=== PATIENT | female | born 1980 | race Caucasian/White ===

== ENCOUNTER 2017-11-20 17:52 | Emergency (ER) | payer SELFPAY ==
[2017-11-20] MEDS ORDERED: Clindamycin 150 MG CAP ONE (18:08)
== END 2017-11-20 18:12 | disposition home or self-care (01) ==
LOC: BURERS 17:52
DX: L08.9 Local infection of the skin and subcutaneous tissue, unspecified (principal); F31.9 Bipolar disorder, unspecified; F17.210 Nicotine dependence, cigarettes, uncomplicated
CPT/HCPCS: 99283

== ENCOUNTER 2018-06-18 10:57 | Emergency (ER) | payer SELFPAY | END 2018-06-18 14:18 | disposition home or self-care (01) | LOC: BURERS 10:57 | DX: L25.9 Unspecified contact dermatitis, unspecified cause (principal); F31.9 Bipolar disorder, unspecified; F41.9 Anxiety disorder, unspecified; F17.210 Nicotine dependence, cigarettes, uncomplicated | CPT/HCPCS: 99282 ==

== ENCOUNTER 2020-07-31 22:55 | Emergency (ER) | payer SELFPAY ==
[2020-07-31] MEDS ORDERED: Acetaminophen 500 MG TAB ONE (23:39)
[2020-07-31] MEDS ORDERED: Sulfameth/Trimethoprim DS 800-160mg TAB ONE (23:39)
[2020-07-31] MEDS ORDERED: Cephalexin 250 MG CAP ONE (23:39)
== END 2020-07-31 23:55 | disposition home or self-care (01) ==
LOC: BURERS 22:55
DX: L03.116 Cellulitis of left lower limb (principal); I10 Essential (primary) hypertension; F31.9 Bipolar disorder, unspecified; F41.9 Anxiety disorder, unspecified; F17.210 Nicotine dependence, cigarettes, uncomplicated; Z71.6 Tobacco abuse counseling
CPT/HCPCS: 99406

== ENCOUNTER 2024-06-11 11:00 | Emergency (ER) | payer OTHER, SELFPAY ==
[2024-06-11 11:21] LABS: Bilirubin Negative (Negative); Blood, Urine Trace (Negative); Clarity Clear (Clear); Glucose, Urine (Dipstick) Negative (Negative); Ketone, Urine Negative (Negative); Leukocyte Negative (Negative); Nitrite Negative (Negative); Protein, Urine (Dipstick) Negative (Neg-Trace); Urobilinogen 0.2 mg/dL (Less than 2); pH, Urine 5.5 (5.0-9.0)
[2024-06-11] MEDS ORDERED: Morphine 2 MG/ML VIAL ONE (11:23)
[2024-06-11 11:24] LABS: Bacteria/HPF None Seen HPF (None Seen); CAUTI Indications for Culture Dysuria,urgency,freq; RBC/HPF 0-3 HPF (0-3); Specific Gravity, Urine 1.032 (1.002-1.036); Squamous Epithelial 0-3 HPF (0-3); WBC/HPF 0-3 HPF (0-3)
[2024-06-11 11:25] LABS: Urine Culture Reflex No No
[2024-06-11 11:51] LABS: #Basophils 0.1 thou/uL (0.0-0.2); #Eosinphils 0.1 thou/uL (0.0-0.7); #Lymphocytes 1.3 thou/uL (1.20-3.40); #Monocytes 0.5 thou/uL (0.11-0.59); #Neutrophils 5.2 thou/uL (1.40-6.50); %Basophils 1.1 % (0.0-1.0); %Lymphocytes 18.2 % (21.0-51.0); %Monocytes 7.1 % (0.0-10.0); %Neutrophils 71.6 % (42.0-75.0); Hematocrit 32.8 % (36.0-47.0); Hemoglobin 9.7 g/dL (12.0-16.0); Mean Corpuscular HGB CONC 29.4 g/dL (32.0-36.0); Mean Corpuscular Hemoglobin 21.7 pg (27.0-31.0); Mean Corpuscular Volume 73.9 fl (78.0-98.0); Mean Platelet Volume 7.7 fL (7.4-10.4); Platelet Count 310 10x3/uL (130-400); RBC Distribution Width 14.2 % (11.5-14.5); Red Blood Cell (RBC) Count 4.44 mill/uL (4.20-5.40); White Blood Cell (WBC) Count 7.2 10x3/uL (4.8-10.8)
[2024-06-11 11:51] LABS: Pregnancy Test - Urine (BHCG) Negative (Negative); Pregu Control Background? CLEAR/WHITE (CLR/WHITE); Pregu Control Bar Appear? YES (CONTROL BAR); Specific Gravity 1.032 (1.002-1.036)
[2024-06-11 12:06] LABS: ALT (SGPT) 42 U/L (8-55); AST (SGOT) 28 U/L (5-34); Albumin 3.8 g/dL (3.5-5.0); Alkaline Phosphatase 67 U/L (40-110); Anion Gap 15 mmol/L (10-20); BUN (Urea Nitrogen) 15 mg/dL (7.0-18.7); Bilirubin, Total 0.5 mg/dL (0.2-1.2); Calc. Creatinine Clearance 0 mL/min (70-130); Calcium 9.5 mg/dL (7.8-10.44); Carbon Dioxide 25 mmol/L (22-29); Chloride 106 mmol/L (98-107); Estimated GFR 69; Globulin 3.9 g/dL (2.4-3.5); Glucose 111 mg/dL (70-105); Lipase 24 U/L (8-78); Potassium 3.9 mmol/L (3.5-5.1); Protein, Total 7.7 g/dL (6.0-8.3); Sodium 142 mmol/L (136-145)
[2024-06-11 12:14] LABS: Hypochromia SLIGHT = 6-15 cells (100X) (0-5/hpf); MDiff Complete? YES; Microcytosis SLIGHT = 6-15 cells (100X) (0-5/hpf); Platelet Adequacy Comment Appears Adequate
[2024-06-11] MEDS ORDERED: Ketorolac Tromethamine 30 MG (1 mL) VIAL ONE (12:28)
== END 2024-06-11 12:40 | disposition home or self-care (01) ==
LOC: BURERS 11:00
DX: N20.0 Calculus of kidney (principal); F17.210 Nicotine dependence, cigarettes, uncomplicated
CPT/HCPCS: 36415; 74176; 80053; 81001; 81025; 83605; 83690; 85025; 96372; J1885; J2272